=== PATIENT | female | born 1940 | race Caucasian/White ===

== ENCOUNTER 2017-05-23 10:38 | Outpatient (CLI) | payer MEDICARE ==
--- NOTE | 2017-05-23 12:51 | RAD ---
TWO VIEWS LEFT HIP: Date: 05-23-17 Comparison: None. History: Hip pain. FINDINGS: There is severe joint space narrowing involving the left hip. 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 No fracture or dislocation. The re is prominent degenerative change involving the imaged lumbar spine at L4-5 and L5-S1. IMPRESSION: Severe degenerative changes. No acute osseous abnormality. POS: OFF
== END 2017-05-23 10:39 | disposition home or self-care (01) ==
LOC: TBSIIMAG 10:38
PROVIDERS: ATTEND Neurological Surgery
DX: M25.552 Pain in left hip (principal); M47.896 Other spondylosis, lumbar region